=== PATIENT | male | born 1985 | race Caucasian/White ===

== ENCOUNTER 2017-01-22 14:00 | Emergency (ER) | payer MEDICAID ==
[~2017-01-22] VITALS: Ht 165.1 cm; Wt 69.0 kg
[~2017-01-22 14:00] MED LIST: HYDR-906 PO; ONDA4TAB8 PO; TAMS-14 PO
[2017-01-22 14:26] VITALS: Ht 165.1 cm; Wt 69.0 kg
[2017-01-22] MEDS ORDERED: ONDANSETRON 4 MG INJ IV STA (15:05)
[2017-01-22 15:21] LABS: URINE BLOOD (Dip) POC Negative (NEGATIVE)
[2017-01-22 15:28] LABS: ADD SCAN DIFF NO
[2017-01-22 15:30] LABS: BASOPHIL # 0.1 10^3/ul (0.0-0.1); BASOPHILS % 0.3 % (0.0-2.0); EOSINOPHILS # 0.1 10^3/ul (0.0-0.5); EOSINOPHILS % 0.3 % (0.0-7.0); HEMATOCRIT 59.1 % (42.0-52.0); HEMOGLOBIN 20.2 g/dl (14.0-18.0); LYMPHOCYTES # 1.4 10^3/ul (0.8-2.9); LYMPHOCYTES % 7.5 % (15.0-51.0); MEAN CORPUSCULAR HEMOGLOBIN 30.2 pg (29.0-33.0); MEAN CORPUSCULAR HGB CONC 34.2 g/dl (32.0-37.0); MEAN CORPUSCULAR VOLUME 88.3 fl (82.0-101.0); MEAN PLATELET VOLUME 9.4 fl (7.4-10.4); MONOCYTE # 1.4 10^3/ul (0.3-0.9); MONOCYTES % 7.2 % (0.0-11.0); NEUTROPHIL # 16.2 10^3/ul (1.6-7.5); NEUTROPHILS % 84.3 % (39.0-77.0); PLATELET COUNT 378 10^3/UL (140-415); RED BLOOD COUNT 6.69 10^6/ul (4.70-6.10); RED CELL DISTRIBUTION WIDTH 12.5 % (11.5-14.5); WHITE BLOOD COUNT 19.2 10^3/ul (4.8-10.8)
[2017-01-22] MEDS ORDERED: SOD CHLORIDE 0.9% 1,000 ML IV ONE (15:30)
[2017-01-22] MEDS ORDERED: MECLIZINE 12.5 MG TAB PO ONE (15:30)
[2017-01-22 15:49] LABS: ALBUMIN 5.4 g/dl (3.3-4.9); ALBUMIN/GLOBULIN RATIO 1.28; BILIRUBIN,INDIRECT 0.4 mg/dl (0-1.1); BILIRUBIN,TOTAL 0.4 mg/dl (0.2-1.3); CALCIUM 11.3 mg/dl (8.4-10.2); CREATININE 0.99 mg/dl (0.61-1.24); POTASSIUM 4.8 mmol/L (3.5-5.1); TOTAL PROTEIN 9.6 g/dl (6.1-8.1)
[2017-01-22 15:59] LABS: BARBITURATES Negative (NEGATIVE); BENZODIAZEPINES Negative (NEGATIVE); CANNABINOIDS Negative (NEGATIVE); COCAINE Negative (NEGATIVE); OPIATES Negative (NEGATIVE)
--- NOTE | 2017-01-22 16:33 | RADRPT ---
PROCEDURE: Right upper quadrant abdominal ultrasound. CLINICAL INDICATION: Abdominal pain TECHNIQUE: Licea scale and color doppler ultrasound images of the right upper quadrant. COMPARISON: None FINDINGS: Pancreas: Not adequately visualized due to overlying bowel gas. Liver: Morphology: Normal in size and contour. Echogenicity: Normal. Focal lesions: None. Main portal vein: Patent with hepatopetal flow. Biliary System: Normal appearing gallbladder wall. No gallstones seen. No intrahepatic biliary dilatation. Common bile duct measures 1.2 mm in maximal dimension. Kidneys: Right 9.7 cm in length. Right renal cortical thickness is preserved. Upper limits of normal echogenicity. No hydronephrosis. No renal calculi. No focal lesions. No free fluid identified. IMPRESSION: Normal gallbladder without gallstones. Pancreas not adequately visualized. RPTAT: AADD .Ronen Ramírez MD, Date Time Electronically viewed and signed by .Ronen Ramírez MD, on 01/22/2017 16:33 .B/
--- NOTE | 2017-01-22 16:37 | ERD ---
ER Documentation Chief Complaint Date/Time DATE: 01/22/17 TIME: 16:35 Chief Complaint ap with n/v x 1 day HPI This is a 31-year-old male who presents to the emergency department today with sudden onset vomiting and dizziness that started 3 hours ago. States he was driving on it happened. States he also has some abdominal pain. Denies any blurred vision, fevers or chills. Denies any loss of consciousness. ROS All systems reviewed and are negative except as per history of present illness. Medications Home Meds Active Scripts Electrolyte,Oral (Pedialyte) 1,000 Ml Solution, 100 ML PO Q6 Y for VOMITTING, # 1000 ML Prov:YUN ARVIZUC 01/22/17 Meclizine Hcl* (Antivert*) 12.5 Mg Tab, 12.5 MG PO Q6H Y for DIZZINESS, #20 TAB Prov:YUN ARVIZUC 01/22/17 Ondansetron Hcl* (Zofran*) 4 Mg Tablet, 4 MG PO Q6H for NAUSEA AND/OR VOMITING, #30 TAB Prov:YUN ARVIZUC 01/22/17 Hydrocodone/Acetaminophen ([place] 5-325 Tablet) 1 Each Tablet, 1 TAB PO Q6H Y for PAIN, #5 TAB Prov:TASHATADORCAS BRAUN PA-C 06/06/16 Tamsulosin Hcl* (Flomax*) 0.4 Mg Cap.er.24h, 0.4 MG PO BID, #30 CAP Prov:TASHATADORCAS BRAUN PA-C 06/06/16 Ondansetron Hcl* (Zofran*) 4 Mg Tablet, 4 MG PO Q6H for NAUSEA AND/OR VOMITING, #30 TAB Prov:TASHATARIDORCAS ISABEL-C 06/06/16 Allergies Allergies: Coded Allergies: No Known Allergy (Unverified , 01/22/17) PMhx/Soc Medical and Surgical Hx: pt denies Surgical Hx Anesthesia Reaction: No Hx Neurological Disorder: No Hx Respiratory Disorders: No Hx Cardiac Disorders: No Hx Psychiatric Problems: No Hx Miscellaneous Medical Probl: Yes (GASTRITIS ) Hx Alcohol Use: Yes Hx Substance Use: No Hx Tobacco Use: No Smoking Status: Never smoker Physical Exam Vitals Vital Signs Date Time Temp Pulse Resp B/P Pulse Ox O2 Delivery O2 Flow Rate FiO2 01/22/17 14:26 97.9 110 18 123/84 97 Physical Exam Const: NAD Head: Atraumatic Eyes: Normal Conjunctiva. PERRLA. EOM intact ENT: Ears TMs normal. Nose no drainage. Throat no erythema no exudate Neck: Full range of motion..~ No meningismus. Resp: Clear to auscultation bilaterally Cardio: Regular rate and rhythm, no murmurs Abd: Soft, epigastric tenderness, non distended. Normal bowel sounds. No right lower quadrant pain. No left lower quadrant pain. Skin: No petechiae or rashes Back: No midline or flank tenderness Ext: No cyanosis, or edema Neur: Awake and alert. No focal neurologic deficits. No gait ataxia. Psych: Normal Mood and Affect Result Diagram: 01/22/17 1520 01/22/17 1520 Results 24 hrs Laboratory Tests Test 01/22/17 15:00 01/22/17 15:20 01/22/17 15:25 Urine Opiates Screen Negative Urine Barbiturates Negative Urine Amphetamines Screen Negative Urine Benzodiazepines Screen Negative Urine Cocaine Screen Negative Urine Cannabinoids Negative White Blood Count 19.210^3/ul Red Blood Count 6.6910^6/ul Hemoglobin 20.2g/dl Hematocrit 59.1% Mean Corpuscular Volume 88.3fl Mean Corpuscular Hemoglobin 30.2pg Mean Corpuscular Hemoglobin Concent 34.2g/dl Red Cell Distribution Width 12.5% Platelet Count 36445^3/UL Mean Platelet Volume 9.4fl Neutrophils % 84.3% Lymphocytes % 7.5% Monocytes % 7.2% Eosinophils % 0.3% Basophils % 0.3% Nucleated Red Blood Cells % 0.0/100WBC Neutrophils # 16.210^3/ul Lymphocytes # 1.410^3/ul Monocytes # 1.410^3/ul Eosinophils # 0.110^3/ul Basophils # 0.110^3/ul Nucleated Red Blood Cells # 0.010^3/ul Sodium Level 148mmol/L Potassium Level 4.8mmol/L Chloride Level 105mmol/L Carbon Dioxide Level 28mmol/L Anion Gap 20 Blood Urea Nitrogen 19mg/dl Creatinine 0.99mg/dl Glucose Level 132mg/dl Calcium Level 11.3mg/dl Total Bilirubin 0.4mg/dl Direct Bilirubin 0.00mg/dl Indirect Bilirubin 0.4mg/dl Aspartate Amino Transf (AST/SGOT) 34IU/L Alanine Aminotransferase (ALT/SGPT) 50IU/L Alkaline Phosphatase 103IU/L Total Protein 9.6g/dl Albumin 5.4g/dl Globulin 4.20g/dl Albumin/Globulin Ratio 1.28 Lipase 50U/L Ethyl Alcohol Level < 10.0mg/dl Bedside Urine pH (LAB) 5.5 Bedside Urine Protein (LAB) 1+ Bedside Urine Glucose (UA) Negative Bedside Urine Ketones (LAB) Negative Bedside Urine Blood Negative Bedside Urine Nitrite (LAB) Negative Bedside Urine Leukocyte Esterase (L Negative Current Medications Medications (Trade) Dose Ordered Sig/Gianluca Route PRN Reason Start Time Stop Time Status Last Admin Dose Admin Ondansetron HCl 4 mg 4 mg ONCE STAT IV 01/22/17 15:05 01/22/17 15:08 DC 01/22/17 15:26 Sodium Chloride (NS) 1,000 ml @ 1,000 mls/hr Q1H ONCE IV 01/22/17 15:30 01/22/17 16:29 DC 01/22/17 15:26 Meclizine HCl (Antivert) 25 mg ONCE ONCE PO 01/22/17 15:30 01/22/17 15:31 DC 01/22/17 15:26 DIAGNOSTIC IMAGING REPORT Patient: DEMETRICE DUKE : 1985 Age: 31 Sex: M MR #: [id number] DOS: 01/22/17 0000 Ordering MD: YUN ARVIZU PA-C Location: [facility] Room/Bed: PROCEDURE: Right upper quadrant abdominal ultrasound. CLINICAL INDICATION: Abdominal pain TECHNIQUE: Licea scale and color doppler ultrasound images of the right upper quadrant. COMPARISON: None FINDINGS: Pancreas: Not adequately visualized due to overlying bowel gas. Liver: Morphology: Normal in size and contour. Echogenicity: Normal. Focal lesions: None. Main portal vein: Patent with hepatopetal flow. Biliary System: Normal appearing gallbladder wall. No gallstones seen. No intrahepatic biliary dilatation. Common bile duct measures 1.2 mm in maximal dimension. Kidneys: Right 9.7 cm in length. Right renal cortical thickness is preserved. Upper limits of normal echogenicity. No hydronephrosis. No renal calculi. No focal lesions. No free fluid identified. IMPRESSION: Normal gallbladder without gallstones. Pancreas not adequately visualized. RPTAT: AADD .Ronen Ramírez MD, MD Date Time Electronically viewed and signed by .Ronen Ramírez MD, MD on 01/22/2017 16:33 .B/ CC: YUN ARVIZU PA-C DIAGNOSTIC IMAGING REPORT Patient: DEMETRICE DUKE : 1985 Age: 31 Sex: M MR #: [id number] DOS: 01/22/17 0000 Ordering MD: YUN ARVIZU PA-C Location: [facility] Room/Bed: PROCEDURE: CT Brain without contrast. CLINICAL INDICATION: Dizziness and vomiting. TECHNIQUE: A CT of the brain without contrast was performed utilizing axial sections from the skull base through the vertex. The patient was scanned without intravenous contrast enhancement. Sagittal and coronal reformatted images were obtained using the data from the axial images. Total exam DLP is 824.76 mGy-cm. CTDIvol is 43.17 mGy. One or more of the following dose reduction techniques were used: Automated exposure control, adjustment of the mA and/or kV according to patient size, use of iterative reconstruction technique. COMPARISON: None available FINDINGS: There is normal licea-white matter differentiation. The ventricles and cisterns are normal. There is no intracranial hemorrhage or space-occupying lesion. There is no skull fracture or lytic lesion. IMPRESSION: 1. Normal noncontrast CT scan of the brain. 2. No intracranial hemorrhage. RPTAT: QQ .Marek Kumari MD, Date Time Electronically viewed and signed by .Marek Kumari MD, on 01/22/2017 19:15 .R/ CC: YUN ARVIZU PA-C Procedures/MDM This a 31-year-old male who presents to the emergency department today complaining of sudden onset dizziness and nausea with vomiting and abdominal pain that started approximately 3 hours prior to arrival. Patient did appear to be slow to answer questions however this may be secondary to possible language barrier. I did obtain laboratory work as well as a UA and urine drug screen and EKG. Laboratory work shows an elevated white blood cell count of 19.2. His hemoglobin and hematocrit are elevated. Platelets are within normal limits. Sodium is elevated otherwise electrolytes are within normal limits. Glucose is within normal limits. Liver function is within normal limits. Lipase within normal limits. UA is negative for infection Urine drug screen is negative Ethyl alcohol level is negative EKG read and interpreted by Dr. Mcconnell. No ST elevation. No QT prolongation. Normal sinus rhythm. Low suspicion for acute NC, PE, pericarditis Patient continued to complain of dizziness and therefore he was further evaluated by Dr. Mcconnell who recommended a right upper quadrant ultrasound and head CT scan Right upper quadrant ultrasound shows a normal gallbladder without gallstones. Pancreas is not adequately visualized. There is no free fluid. There is no renal calculi. There is no intrahepatic biliary dilatation. Head CT scan shows normal noncontrast CT scan of the brain. There is no intracranial hemorrhage. There is no fracture or lytic lesion. Patient symptoms at this time is consistent with dizziness and abdominal pain of uncertain etiology although may be related to viral-like illness. Low suspicion for hypoglycemia, cardiac cause or neurogenic cause of dizziness. Low suspicion for acute surgical abdomen. Patient will be given IV fluids, Zofran, meclizine here in the emergency department. He will be given a prescription for Zofran and meclizine for home. At this time the patient is stable for discharge and outpatient management. Patient should follow up with their PCP in the next 1-2 days. They may return to the emergency department sooner for any persistent or worsening of symptoms. Patient understood and agreed with the plan. Departure Diagnosis: Primary Impression: Dizziness Additional Impression: Abdominal pain Abdominal location: epigastric Qualified Code: R10.13 - Epigastric pain Condition: Fair YUN ARVIZU PA-C Jan 22, 2017 16:36
--- NOTE | 2017-01-22 19:15 | RADRPT ---
PROCEDURE: CT Brain without contrast. CLINICAL INDICATION: Dizziness and vomiting. TECHNIQUE: A CT of the brain without contrast was performed utilizing axial sections from the skul l base through the vertex. The patient was scanned without intravenous contrast enhancement. Sagitta l and coronal reformatted images were obtained using the data from the axial images. Total exam DLP is 824.76 mGy-cm. CTDIvol is 43.17 mGy. One or more of the following dose reduction techniques we re used: Automated exposure control, adjustment of the mA and/or kV according to patient size, use o f iterative reconstruction technique. COMPARISON: None available FINDINGS: There is normal mata-white matter differentiation. The ventricles and cisterns are normal. There is no intracranial hemorrhage or space-occupying lesion. There is no skull fracture or lytic lesion. IMPRESSION: 1. Normal noncontrast CT scan of the brain. 2. No intracranial hemorrhage. RPTAT: QQ .Marek Kumari MD, MD Date Time Electronically viewed and signed by .Marek Kumari MD, on 01/22/2017 19:15 .R/
[2017-01-22] MEDS ORDERED: ONDA4TAB8 PO (19:23)
[2017-01-22] MEDS ORDERED: ELEC100080 PO (19:24)
[2017-01-22] MEDS ORDERED: MECL12.574 PO (19:24)
== END 2017-01-22 19:36 | disposition home or self-care (01) ==
LOC: FTE 14:00
DX: R42 Dizziness and giddiness (principal); R10.13 Epigastric pain
CPT/HCPCS: 36415; 70450; 76705; 80053; 80306; 80307; 81003; 83690; 85025; 93005; 96374; J2405; J7030; Z7502; Z7610

== ENCOUNTER 2018-12-06 14:32 | Inpatient (IN) | payer MEDICAID ==
[2018-12-06] VITALS (20 sets, daily range): BP systolic 114–158; BP diastolic 75–91; PULSE 70–84; RESP 14–23; Ht 167.6 cm; Wt 79.7 kg
[~2018-12-06] VITALS: Ht 167.6 cm; Wt 79.7 kg
[~2018-12-06 14:32] MED LIST changes: +ELEC100080 PO; +HYDR-4011 PO; -HYDR-906 PO; +MECL12.574 PO
[2018-12-06] MEDS ORDERED: morphine 4 MG/ML VIAL IV STA (15:13)
[2018-12-06] MEDS ORDERED: SOD CHLORIDE 0.9% 500 ML IV STA (15:13)
[2018-12-06] MEDS ORDERED: ONDANSETRON 4 MG INJ IV STA (15:13)
--- NOTE | 2018-12-06 16:25 | ERD ---
ER Documentation Chief Complaint Chief Complaint ap today HPI 33-year-old male patient with no significant past medical history presents to the ED complaining of diffuse abdominal pain that started 5 AM this morning. Reports that he has had a 10 episodes of nonbilious nonbloody vomiting. States that he has had decreased appetite. Describes his pain as a sharp sensation and rates it a 10 out of 10. Denies any chest pain, shortness of breath, diarrhea, constipation, dysuria, urgency, frequency. ROS All systems reviewed and are negative except as per history of present illness. Medications Home Meds Active Scripts Electrolyte,Oral (Pedialyte) 1,000 Ml Solution, 100 ML PO Q6 PRN for VOMITTING, #1000 ML Prov:YUN ARVIZU PA-C 01/22/17 Meclizine Hcl* (Antivert*) 12.5 Mg Tab, 12.5 MG PO Q6H PRN for DIZZINESS, #20 TAB Prov:YUN ARVIZUC 01/22/17 Ondansetron Hcl* (Zofran*) 4 Mg Tablet, 4 MG PO Q6H for NAUSEA AND/OR VOMITING, #30 TAB Prov:YUN ARVIZUC 01/22/17 Hydrocodone/Acetaminophen ([place] 5-325 Tablet) 1 Each Tablet, 1 TAB PO Q6H PRN for PAIN, #5 TAB Prov:TASHATADORCAS BRAUN PA-C 06/06/16 Tamsulosin Hcl* (Flomax*) 0.4 Mg Cap.er.24h, 0.4 MG PO BID, #30 CAP Prov:TASHATADORCAS BRAUNC 06/06/16 Ondansetron Hcl* (Zofran*) 4 Mg Tablet, 4 MG PO Q6H for NAUSEA AND/OR VOMITING, #30 TAB Prov:TASHATADORCAS BRAUN-C 06/06/16 Allergies Allergies: Coded Allergies: No Known Allergy (Unverified , 01/22/17) PMhx/Soc Anesthesia Reaction: No Hx Neurological Disorder: No Hx Respiratory Disorders: No Hx Cardiac Disorders: No Hx Psychiatric Problems: No Hx Miscellaneous Medical Probl: Yes (GASTRITIS ) Hx Alcohol Use: Yes Hx Substance Use: No Hx Tobacco Use: No FmHx Family History: No diabetes, No coronary disease Physical Exam Vitals Vital Signs Date Temp Pulse Resp B/P (MAP) Pulse Ox O2 O2 Flow FiO2 Time Delivery Rate 12/06/18 97.5 63 20 139/69 96 Room Air 18:19 (92) 12/06/18 98.1 67 18 153/71 99 14:35 (98) Physical Exam Const: [id number], well-nourished. In no acute distress. Head: Atraumatic, normocephalic Eyes: Normal Conjunctiva without injection. No purulent discharge. ENT: Normal external ear, nose. Moist oropharynx without tonsillar exudates. Non-erythematous pharynx. Uvula midline. No drooling. No trismus. Neck: No cervical midline tenderness. Full range of motion. No meningismus. No cervical lymphadenopathy. No JVD. Resp: Clear to auscultation bilaterally. No wheezing, rhonchi, rales, or crackles. No accessory muscle use. No retractions. Cardio: Regular rate and rhythm. No murmurs, rubs or gallops. Abd: Soft, diffuse abdomen, non distended. Normal bowel sounds. No palpable masses. No rebound tenderness. No guarding. Negative McBurney's point. Negative psoas sign. Negative obturator sign. Skin: No petechiae or rashes Back: No midline tenderness. No CVA tenderness. Ext: No cyanosis, or edema. Neur: Awake and alert. Normal gait. Normal coordination. Psych: Normal Mood and Affect Result Diagram: 12/07/18 0453 12/07/18 0452 Results 24 hrs Laboratory Tests Test 12/06/18 15:29 12/06/18 16:43 White Blood Count 22.5 10^3/ul Red Blood Count 5.83 10^6/ul Hemoglobin 17.2 g/dl Hematocrit 50.6 % Mean Corpuscular Volume 86.8 fl Mean Corpuscular Hemoglobin 29.5 pg Mean Corpuscular Hemoglobin Concent 34.0 g/dl Red Cell Distribution Width 12.3 % Platelet Count 330 10^3/UL Mean Platelet Volume 9.2 fl Immature Granulocytes % 0.500 % Neutrophils % 89.7 % Lymphocytes % 5.2 % Monocytes % 4.4 % Eosinophils % 0.0 % Basophils % 0.2 % Nucleated Red Blood Cells % 0.0 /100WBC Immature Granulocytes # 0.110 10^3/ul Neutrophils # 20.2 10^3/ul Lymphocytes # 1.2 10^3/ul Monocytes # 1.0 10^3/ul Eosinophils # 0.0 10^3/ul Basophils # 0.1 10^3/ul Nucleated Red Blood Cells # 0.0 10^3/ul Pathologist Review (Hematology) YES Urine Color YELLOW Urine Clarity SLIGHTLY CLOUDY Urine pH 6.0 Urine Specific [place] 1.034 Urine Ketones 1+ mg/dL Urine Nitrite NEGATIVE mg/dL Urine Bilirubin NEGATIVE mg/dL Urine Urobilinogen NEGATIVE mg/dL Urine Leukocyte Esterase NEGATIVE Rebecca/ul Urine Microscopic RBC 3 /HPF Urine Microscopic WBC 1 /HPF Urine Mucus MANY /HPF Urine Hemoglobin NEGATIVE mg/dL Urine Glucose NEGATIVE mg/dL Urine Total Protein 1+ mg/dl Sodium Level 140 mmol/L Potassium Level 3.9 mmol/L Chloride Level 100 mmol/L Carbon Dioxide Level 28 mmol/L Anion Gap 12 Blood Urea Nitrogen 9 mg/dl Creatinine 0.73 mg/dl Est Glomerular Filtrat Rate mL/min > 60 mL/min Glucose Level 118 mg/dl Calcium Level 9.9 mg/dl Total Bilirubin 1.2 mg/dl Direct Bilirubin 0.00 mg/dl Indirect Bilirubin 1.2 mg/dl Aspartate Amino Transf (AST/SGOT) 23 IU/L Alanine Aminotransferase (ALT/SGPT) 31 IU/L Alkaline Phosphatase 75 IU/L Total Protein 7.8 g/dl Albumin 4.6 g/dl Globulin 3.20 g/dl Albumin/Globulin Ratio 1.43 Lipase 26 U/L Prothrombin Time 13.6 Sec Prothrombin Time Ratio 1.1 INR International Normalized Ratio 1.03 Activated Partial Thromboplast Time 25.5 Sec Current Medications Medications Dose Sig/Gianluca Start Time Status Last (Trade) Ordered Route PRN Stop Time Admin Dose Reason Admin Sodium 500 ml @ Q1H STAT 12/06/18 DC 12/06/18 Chloride 500 mls/hr IV 15:13 12/06/18 15:40 16:12 Morphine 4 mg ONCE STAT 12/06/18 DC 12/06/18 Sulfate IV 15:13 12/06/18 15:35 (morphine) 15:15 Ondansetron 4 mg ONCE STAT 12/06/18 DC 12/06/18 HCl (Zofran IV 15:13 12/06/18 15:35 Inj) 15:15 Piperacillin 100 ml @ ONCE ONCE 12/06/18 DC 12/06/18 Sod/ 200 mls/hr IVPB 16:30 12/06/18 16:36 Tazobactam 16:59 Sod Sodium 1,000 ml @ Q1H ONCE 12/06/18 DC 12/06/18 Chloride 1,000 mls/hr IV 16:30 12/06/18 16:36 17:29 Potassium 1,000 ml @ Q10H IV 12/06/18 DC Chloride/S[place] 100 mls/hr 18:27 12/06/18 um Chloride 19:34 Procedures/MDM 33-year-old patient with no significant past medical history presents to ED complaining of diffuse abdominal pain that started this morning at 5 AM associated with some vomiting. Patient is afebrile and nontoxic-appearing. Patient does appear in mild distress, therefore patient was treated in the ED with 4 mg IV morphine, 4 mg IV Zofran, will saline. Patient was further worked up with CBC, CMP, lipase, UA, T of the abdomen and pelvis without contrast. CBC: No leukocytosis. No e/o of systemic infection. No e/o anemia. CMP: No e/o severe acidosis, alkalosis, renal failure, diabetic ketoacidosis, liver disease Lipase within normal limits. Urine: No leukocyte esterase, no nitrites, no hematuria. IMPRESSION: 1. FINDINGS DESCRIBED ABOVE ARE CONSISTENT WITH ACUTE APPENDICITIS. THERE IS ADJACENT FATTY STRANDING AND SEVERAL APPENDICOLITHS. NO EVIDENCE OF PERFORATION OR FOCAL FLUID COLLECTIONS. 2. No evidence of bowel obstruction. 3. Small left-sided renal cyst. No evidence of obstructive uropathy. Patient has CT findings of acute appendicitis. Leukocytosis of 22.5. Started on Zosyn 3.375 IV. PT PTT, type and screen was ordered. This discussed with my supervising physician, Dr. Duke who will admit the patient for surgical consultation. Patient agreed with the management and admission plan Sebastian: I saw patinet and agree with plan. Admitted to Dr. Garcia with Dr. Das as surgical consult Departure Diagnosis: Primary Impression: Appendicitis Appendicitis type: unspecified Qualified Codes: K37 - Unspecified appendicitis Condition: Serious SHIVANISKYLAR Kena NARAYAN December 06, 2018 16:25 JOSE DUKE MD December 07, 2018 09:51
[2018-12-06] MEDS ORDERED: PIPER-TAZO 3.375 GM IV (PMX) 100 ML IVPB ONE (16:30)
[2018-12-06] MEDS ORDERED: SOD CHLORIDE 0.9% 1,000 ML IV ONE (16:30)
--- NOTE | 2018-12-06 16:47 | CONS ---
Assessment/Plan Assessment/Plan Assessment/Plan (Daily) Acute appendicitis I discussed laparoscopic, possible open, appendectomy at the patient. All bene fits, risks, alternatives discussed in detail. All questions answered. The patient elects to proceed Consultation Date/Type/Reason Admit Date/Time Date/Time of Note DATE: 12/06/18 TIME: 16:44 Hx of Present Illness The patient is a 33-year-old male who woke up this morning acute onset of epigastric and umbilical pain. Interval episodes of emesis. No fevers or chills. Decreased appetite. His symptoms persisted throughout the day and he presented to the ER this morning. He does not that it is localized to his right lower quadrant. His work-up in the ER was consistent with acute appendicitis I was called for consultation. Past Medical History Home Meds Active Scripts Electrolyte,Oral (Pedialyte) 1,000 Ml Solution, 100 ML PO Q6 PRN for VOMITTING, #1000 ML Prov:YUN ARVIZU PA-C 01/22/17 Meclizine Hcl* (Antivert*) 12.5 Mg Tab, 12.5 MG PO Q6H PRN for DIZZINESS, #20 TAB Prov:YUN ARVIZU PA-C 01/22/17 Ondansetron Hcl* (Zofran*) 4 Mg Tablet, 4 MG PO Q6H for NAUSEA AND/OR VOMITING, #30 TAB Prov:YUN ARVIZUC 01/22/17 Hydrocodone/Acetaminophen ([place] 5-325 Tablet) 1 Each Tablet, 1 TAB PO Q6H PRN for PAIN, #5 TAB Prov:DORCAS WALL PA-C 06/06/16 Tamsulosin Hcl* (Flomax*) 0.4 Mg Cap.er.24h, 0.4 MG PO BID, #30 CAP Prov:DORCAS WALL PA-C 06/06/16 Ondansetron Hcl* (Zofran*) 4 Mg Tablet, 4 MG PO Q6H for NAUSEA AND/OR VOMITING, #30 TAB Prov:DORCAS WALL PA-C 06/06/16 Medications Current Medications Piperacillin Sod/ Tazobactam Sod 100 ml @ 200 mls/hr ONCE ONCE IVPB Last administered on 12/06/18at 16:36; Admin Dose 200 MLS/HR; Start 12/06/18 at 16:30; Stop 12/06/18 at 16:59 Sodium Chloride 1,000 ml @ 1,000 mls/hr Q1H ONCE IV Last administered on 12/06/18at 16:36; Admin Dose 1,000 MLS/HR; Start 12/06/18 at 16:30; Stop 12/06/18 at 17:29 Allergies: Coded Allergies: No Known Allergy (Unverified , 01/22/17) Past Surgical History Past Surgical Hx: no surgical history Family History Significant Family History: no pertinent family hx Social History Alcohol Use: rarely Smoking Status: Never smoker Drug Use: none Exam/Review of Systems Exam Vitals Vital Signs Date Temp Pulse Resp B/P (MAP) Pulse Ox O2 O2 Flow FiO2 Time Delivery Rate 12/06/18 98.1 67 18 153/71 99 14:35 (98) Constitutional: alert, oriented, well developed Psych: no complaints Head: normocephalic Eyes: nl conjunctiva Neck: supple Respiratory: clear to auscultation Cardiovascular: regular rate and rhythm Gastrointestinal: soft, other (Distended but significant right lower quadrant tenderness) Results Result Diagram: 12/06/18 1529 12/06/18 1529 Results 24hrs Laboratory Tests Test 12/06/18 15:29 White Blood Count 22.5 H Red Blood Count 5.83 Hemoglobin 17.2 Hematocrit 50.6 Mean Corpuscular Volume 86.8 Mean Corpuscular Hemoglobin 29.5 Mean Corpuscular Hemoglobin Concent 34.0 Red Cell Distribution Width 12.3 Platelet Count 330 Mean Platelet Volume 9.2 Immature Granulocytes % 0.500 H Neutrophils % 89.7 H Lymphocytes % 5.2 L Monocytes % 4.4 Eosinophils % 0.0 Basophils % 0.2 Nucleated Red Blood Cells % 0.0 Immature Granulocytes # 0.110 H Neutrophils # 20.2 H Lymphocytes # 1.2 Monocytes # 1.0 H Eosinophils # 0.0 Basophils # 0.1 Nucleated Red Blood Cells # 0.0 Pathologist Review (Hematology) YES Urine Color YELLOW Urine Clarity SLIGHTLY CLOUDY A Urine pH 6.0 Urine Specific [place] 1.034 H Urine Ketones 1+ H Urine Nitrite NEGATIVE Urine Bilirubin NEGATIVE Urine Urobilinogen NEGATIVE Urine Leukocyte Esterase NEGATIVE Urine Microscopic RBC 3 Urine Microscopic WBC 1 Urine Mucus MANY A Urine Hemoglobin NEGATIVE Urine Glucose NEGATIVE Urine Total Protein 1+ H Sodium Level 140 Potassium Level 3.9 Chloride Level 100 Carbon Dioxide Level 28 Anion Gap 12 Blood Urea Nitrogen 9 Creatinine 0.73 Est Glomerular Filtrat Rate mL/min > 60 Glucose Level 118 Calcium Level 9.9 Total Bilirubin 1.2 Direct Bilirubin 0.00 Indirect Bilirubin 1.2 H Aspartate Amino Transf (AST/SGOT) 23 Alanine Aminotransferase (ALT/SGPT) 31 Alkaline Phosphatase 75 Total Protein 7.8 Albumin 4.6 Globulin 3.20 Albumin/Globulin Ratio 1.43 Lipase 26 Imaging Imaging Patient: DEMETRICE DUKE : 1985 Age: 33 Sex: M MR #: [id number] DOS: 12/06/18 1513 Ordering MD: SKYLAR PARRISH PA-C Location: [facility] Room/Bed: PROCEDURE: CT ABDOMEN AND PELVIS WITHOUT CONTRAST. CLINICAL INDICATION: Abdominal pain TECHNIQUE: CT scan of the abdomen and pelvis without contrast was performed on a multidetector high-resolution CT scanner. The patient was scanned without intravenous contrast. Coronal and sagittal reformatted images were obtained from the axial source images. Images were reviewed on a high-resolution PACS workstation. The total exam CTDI equals 7.9 mGy and the total exam DLP equals 502 mGy-cm. One or more of the following dose reduction techniques were used: Automated exposure control. Adjustment of the mA and/or kV according to patient size. Use of iterative reconstruction technique. DICOM images are available COMPARISON: None FINDINGS: CT abdomen: The lung bases are clear. The heart size is within normal limits. There is no significant pericardial effusion. Hepatic morphology is within normal limits. No gross contour deforming masses. The gallbladder is within normal limits. No evidence of intrahepatic or extrahepatic biliary dilatation. The spleen and pancreas are within normal limits. Both adrenal glands are within normal limits. Both kidneys are in anatomic position. No gross renal/ureteric calculi. No evidence of obstructive uropathy. 1.5 cm left-sided renal cyst. The visualized GI tract demonstrates normal caliber loops of small and large bowel. No evidence of bowel obstruction. Stool filled loops of large bowel suggestive of constipation. The appendix is dilated, containing several appendicoliths with adjacent fatty stranding. The unenhanced aorta is unremarkable. No significant retroperitoneal lymphadenopathy. CT pelvis: The bladder is within limits. Prostate is normal size. Rectosigmoid colon demonstrates stool. No significant free fluid. No pelvic lymphadenopathy. The visualized osseous structures appears to be within normal limits. IMPRESSION: 1. FINDINGS DESCRIBED ABOVE ARE CONSISTENT WITH ACUTE APPENDICITIS. THERE IS ADJACENT FATTY STRANDING AND SEVERAL APPENDICOLITHS. NO EVIDENCE OF PERFORATION OR FOCAL FLUID COLLECTIONS. 2. No evidence of bowel obstruction. 3. Small left-sided renal cyst. No evidence of obstructive uropathy. RPTAT: AAPP Physician Dianna Date Time Electronically viewed and signed by Driss Murray Physician on 12/06/2018 16:00 Medications Medication Current Medications Piperacillin Sod/ Tazobactam Sod 100 ml @ 200 mls/hr ONCE ONCE IVPB Last administered on 12/06/18at 16:36; Admin Dose 200 MLS/HR; Start 12/06/18 at 16:30; Stop 12/06/18 at 16:59 Sodium Chloride 1,000 ml @ 1,000 mls/hr Q1H ONCE IV Last administered on 12/06/18at 16:36; Admin Dose 1,000 MLS/HR; Start 12/06/18 at 16:30; Stop 12/06/18 at 17:29 KELLY APPIAH MD December 06, 2018 16:47
--- NOTE | 2018-12-06 16:51 | SIPON ---
Date/Time of Note Date/Time of Note DATE: 12/06/18 TIME: 16:50 Operative Report Preoperative Diagnosis Acute appendicitis Postoperative Diagnosis Same Operation/Procedure Performed Laparoscopic appendectomy Surgeon see signature line automotive parts counter assistant None Anesthesia: general Estimated blood loss: minimal Transfusion Required none Specimen Appendix Grafts/Implants none Complications none KELLY APPIAH MD December 06, 2018 16:51
--- NOTE | 2018-12-06 16:53 | OPR ---
Date/Time of Note Date/Time of Note DATE: 12/06/18 TIME: 16:51 Operative Report Preoperative Diagnosis Acute appendicitis Postoperative Diagnosis Same Operation/Procedure Performed Laparoscopic appendectomy Surgeon see signature line Chipper Operator None Anesthesia Type: general Anesthesiologist: Armando Sin M.D. Estimated Blood Loss: minimal Transfusion none Specimen Appendix Grafts/Implants none Complications none Pt Condition Post Procedure: stable Disposition: PACU Indications The patient is a 33-year-old male with acute appendicitis. I discussed laparoscopic, possible open, appendectomy with the patient . All benefits, risks, alternatives were discussed in detail. All questions answered. The patient elected to proceed per Procedure Description The patient was brought to operative room placed supine on the table. After preop antibiotics and SCDs were applied, the patient was intubated. The abdomen was cleaned, prepped, draped in usual sterile fashion. All incisions were infiltrated with half percent lidocaine with epinephrine. A 5 mm incision was made in the umbilicus. Using a 5 by laparoscope obtained trocar, the abdomen was was entered and insufflated to 15 mmHg CO2. The following trochars in place and direct vision: A right lower quadrant 5 mm left lower quadrant 12 mm I identified my appendix. It was consistent with acute appendicitis. The base was not involved. I made a rent through the mesentery at the base of the appendix. I then divided the base of the appendix to the cecum with a 35 mm Endo linear cutter white load. . I was able to elevate the appendix. The mesentery was then divided with a 35 mm Endo linear cutter white load. The appendix was placed in Endo Catch bag removed and the 12 mm trocar site. I irrigated out the right lower quadrant and pelvis until effluent was clear. I visualized the staple lines. They were hemostatic. I desufflated the abdomen and removed all trochars. The fascia of the 12 mm trocar site was closed with 0 Vicryl. Skin incisions were closed with 4-0 Monocryl, Mastisol, and Steri-Strips marked muscle Steri-Strips. The patient tolerated the procedure well, was extubated ER, and transferred to the recovery room in stable condition. KELLY APPIAH MD December 06, 2018 16:52
--- NOTE | 2018-12-06 18:26 | HP ---
Date/Time of Note Date/Time of Note DATE: 12/06/18 TIME: 18:24 Assessment/Plan VTE Prophylaxis SCD applied (from Nsg): Yes Pharmacological prophylaxis: NA/contraindicated Pharm contraindication: surgical contra Lines/Catheters IV Catheter Type (from Nrsg): Saline Lock Assessment/Plan Hospital Course 1. Abdominal pain and sepsis secondary to acute appendicitis Patient to be taken to the OR today Pain control Zosyn IV Prophylaxis: SCDs Result Diagram: 12/06/18 1529 12/06/18 1529 Results 24hrs Laboratory Tests Test 12/06/18 15:29 12/06/18 16:43 White Blood Count 22.5 H Red Blood Count 5.83 Hemoglobin 17.2 Hematocrit 50.6 Mean Corpuscular Volume 86.8 Mean Corpuscular Hemoglobin 29.5 Mean Corpuscular Hemoglobin Concent 34.0 Red Cell Distribution Width 12.3 Platelet Count 330 Mean Platelet Volume 9.2 Immature Granulocytes % 0.500 H Neutrophils % 89.7 H Lymphocytes % 5.2 L Monocytes % 4.4 Eosinophils % 0.0 Basophils % 0.2 Nucleated Red Blood Cells % 0.0 Immature Granulocytes # 0.110 H Neutrophils # 20.2 H Lymphocytes # 1.2 Monocytes # 1.0 H Eosinophils # 0.0 Basophils # 0.1 Nucleated Red Blood Cells # 0.0 Pathologist Review (Hematology) YES Urine Color YELLOW Urine Clarity SLIGHTLY CLOUDY A Urine pH 6.0 Urine Specific [place] 1.034 H Urine Ketones 1+ H Urine Nitrite NEGATIVE Urine Bilirubin NEGATIVE Urine Urobilinogen NEGATIVE Urine Leukocyte Esterase NEGATIVE Urine Microscopic RBC 3 Urine Microscopic WBC 1 Urine Mucus MANY A Urine Hemoglobin NEGATIVE Urine Glucose NEGATIVE Urine Total Protein 1+ H Sodium Level 140 Potassium Level 3.9 Chloride Level 100 Carbon Dioxide Level 28 Anion Gap 12 Blood Urea Nitrogen 9 Creatinine 0.73 Est Glomerular Filtrat Rate mL/min > 60 Glucose Level 118 Calcium Level 9.9 Total Bilirubin 1.2 Direct Bilirubin 0.00 Indirect Bilirubin 1.2 H Aspartate Amino Transf (AST/SGOT) 23 Alanine Aminotransferase (ALT/SGPT) 31 Alkaline Phosphatase 75 Total Protein 7.8 Albumin 4.6 Globulin 3.20 Albumin/Globulin Ratio 1.43 Lipase 26 Prothrombin Time 13.6 Prothrombin Time Ratio 1.1 INR International Normalized Ratio 1.03 Activated Partial Thromboplast Time 25.5 HPI/ROS Admit Date/Time Admit Date/Time December 06, 2018 Hx of Present Illness Patient is a 33-year-old male with no past medical history, patient presents with abdominal pain that began this morning. Pain was associated with nausea vomiting, in the ER CT abdomen showed acute appendicitis. Patient has no other complaints at this time. ROS Constitutional: no complaints, improved Eyes: no complaints ENT: no complaints Respiratory: no complaints Cardiovascular: no complaints Gastrointestinal: pain Genitourinary: no complaints Musculoskeletal: no complaints Skin: no complaints Neurologic: no complaints Endocrine: no complaints Lymphatic: no complaints Psychological: no complaints, nl mood/affect Immunologic: no complaints PMH/Family/Social Past Medical History Medical History: no pertinent history Coded Allergies: No Known Allergy (Unverified , 01/22/17) Past Surgical History Past Surgical Hx: no surgical history Family History Significant Family History: no pertinent family hx Social History Alcohol Use: rarely Smoking Status: Never smoker Drug Use: none Exam/Review of Systems Vital Signs Vitals Vital Signs Date Temp Pulse Resp B/P (MAP) Pulse Ox O2 O2 Flow FiO2 Time Delivery Rate 12/06/18 97.5 63 20 139/69 96 Room Air 18:19 (92) Exam Constitutional: alert, oriented Respiratory: clear to auscultation Cardiovascular: regular rate and rhythm Gastrointestinal: soft, tender; No distended Musculoskeletal: nl extremities to inspection JOSE ELIAS WASHINGTON December 06, 2018 18:26
[2018-12-06] MEDS ORDERED: NS + KCL 20 MEQ 1,000 ML IV SCH (18:27)
[2018-12-06] MEDS ORDERED: NACL 0.9% 3 ML SYG IV SCH (18:30)
[2018-12-06] MEDS ORDERED: morphine 2 MG INJ IV PRN ×2 (18:30→19:30)
[2018-12-06] MEDS ORDERED: DOCUSATE SODIUM 100 MG CAP PO PRN (18:30)
[2018-12-06] MEDS ORDERED: ACETAMINOPHEN 325 MG TAB PO PRN ×2 (18:30→19:30)
[2018-12-06] MEDS ORDERED: HYDROCODONE/APAP (5/325) TAB PO PRN ×2 (18:30→19:30)
[2018-12-06] MEDS ORDERED: ONDANSETRON 4 MG INJ IV PRN ×2 (18:30→19:30)
[2018-12-06] MEDS ORDERED: ZOLPIDEM 5 MG TAB PO PRN (18:30)
[2018-12-06] MEDS ORDERED: LIDOCAINE 1% (MPF) 30 ML INJ ONE (18:33)
[2018-12-06] MEDS ORDERED: BUPIVACAINE 0.25%/EPI (SDV) 30 ML INJ ONE (18:33)
--- NOTE | 2018-12-06 18:52 | PREAC ---
Date/Time of Note Date/Time of Note DATE: 12/06/18 TIME: 18:51 Anesthesia Eval and Record Evaluation Time Pre-Procedure Interview DATE: 12/06/18 TIME: 18:51 Age 33 Sex male NPO: 8 hrs Preoperative diagnosis acute appendicitis Planned procedure lap appe Past Medical History Past Medical History: None Surgery & Anesthesia Issues No known issue Meds Anticoagulation: No Beta Elo within 24 hr: No Reason Beta Elo not given: Pt. not on B-Elo Active Scripts Electrolyte,Oral (Pedialyte) 1,000 Ml Solution, 100 ML PO Q6 PRN for VOMITTING, #1000 ML Prov:YUN ARVIZU PA-C 01/22/17 Meclizine Hcl* (Antivert*) 12.5 Mg Tab, 12.5 MG PO Q6H PRN for DIZZINESS, #20 TAB Prov:YUN ARVIZU PA-C 01/22/17 Ondansetron Hcl* (Zofran*) 4 Mg Tablet, 4 MG PO Q6H for NAUSEA AND/OR VOMITING, #30 TAB Prov:YUN ARVIZU PA-C 01/22/17 Hydrocodone/Acetaminophen ([place] 5-325 Tablet) 1 Each Tablet, 1 TAB PO Q6H PRN for PAIN, #5 TAB Prov:DORCAS WALL PA-C 06/06/16 Tamsulosin Hcl* (Flomax*) 0.4 Mg Cap.er.24h, 0.4 MG PO BID, #30 CAP Prov:DORCAS WALL PA-C 06/06/16 Ondansetron Hcl* (Zofran*) 4 Mg Tablet, 4 MG PO Q6H for NAUSEA AND/OR VOMITING, #30 TAB Prov:DORCAS WALL PA-C 06/06/16 Current Medications Potassium Chloride/Sodium Chloride 1,000 ml @ 100 mls/hr Q10H IV ; Start 12/06/18 at 18:27 IV Flush (NS 3 ml) 3 ml PER PROTOCOL IV ; Start 12/06/18 at 18:30 Ondansetron HCl (Zofran Inj) 4 mg Q6H PRN IV NAUSEA/VOMITING; Start 12/06/18 at 18:30 Acetaminophen (Tylenol Tab) 650 mg Q6H PRN PO .PAIN 1-3 OR TEMP; Start 12/06/18 at 18:30 Acetaminophen/ Hydrocodone Bitart ([place] (5/325)) 1 tab Q6H PRN PO .MOD PAIN 4- 6; Start 12/06/18 at 18:30 Morphine Sulfate (morphine) 2 mg Q4H PRN IV .SEVERE PAIN 7-10; Start 12/06/18 at 18:30 Docusate Sodium (Colace) 100 mg Q12H PRN PO .CONSTIPATION; Start 12/06/18 at 18:30 Zolpidem Tartrate (Ambien) 5 mg QHS PRN PO .INSOMNIA; Start 12/06/18 at 18:30 Piperacillin Sod/ Tazobactam Sod 100 ml @ 200 mls/hr Q6 IVPB ; Start 12/07/18 at 00:00 Meds reviewed: Yes Allergies Coded Allergies: No Known Allergy (Unverified , 01/22/17) Allergies Reviewed: Yes Labs/Studies Labs Reviewed: Reviewed by anesthesiologist Result Diagram: 12/06/18 1529 12/06/18 1529 Laboratory Tests 12/06/18 15:29 Blood Bank Test 12/06/18 16:43 Antibody Screen NEGATIVE Blood Type A POSITIVE test: N/A Pre-procedure Exam Last vitals Vital Signs Date Temp Pulse Resp B/P (MAP) Pulse Ox O2 O2 Flow FiO2 Time Delivery Rate 12/06/18 97.5 63 20 139/69 96 Room Air 18:19 (92) Airway: Adequate mouth opening, Adequate thyromental dist Mallampati: Mallampati II Teeth: Normal Lung: Normal Heart: Normal ASA Physical Status ASA physical status: 1 Emergency: None Planned Anesthetic General/MAC: ETT Planned Pain Management Parenteral pain med Pre-operative Attestations Prior to commencing anesthesia and surgery, the patient was re-evaluated, there was verification of: *The patient's identity *The results of appropriate recent lab work and preoperative vital signs *The above evaluation not changing prior to induction *Anesthetic plan, risk benefits, alternative and complications discussed with patient/family; questions answered; patient/family understands, accepts and wishes to proceed. Armando Sin M.D. December 06, 2018 18:52
[2018-12-06] MEDS ORDERED: FENTAnyl 50 MCG/ML VIAL ONE (18:54)
[2018-12-06] MEDS ORDERED: GLYCOPYRROLATE 0.4 MG INJ ONE (18:54)
[2018-12-06] MEDS ORDERED: DEXAMETHASONE 4 MG/ML 5 ML INJ ONE (18:54)
[2018-12-06] MEDS ORDERED: PROPOFOL 20 ML ONE (18:54)
[2018-12-06] MEDS ORDERED: ROCURONIUM 50 MG INJ ONE (18:54)
[2018-12-06] MEDS ORDERED: CEFAZOLIN 1 GM INJ ONE (18:54)
[2018-12-06] MEDS ORDERED: MIDAZOLAM 1 MG/ML 2 ML INJ ONE (18:54)
[2018-12-06] MEDS ORDERED: NEOSTIGMINE 3 MG/3 ML SYRINGE ONE (18:54)
[2018-12-06] MEDS ORDERED: ONDANSETRON 4 MG INJ ONE (18:54)
[2018-12-06] MEDS ORDERED: KETOROLAC 60 MG INJ IM STA (19:12)
[2018-12-06] MEDS ORDERED: HYDROCODONE/APAP (5/325) TAB PO ONE (19:30)
--- NOTE | 2018-12-06 19:35 | PAC ---
Date/Time of Note Date/Time of Note DATE: 12/06/18 TIME: 19:35 Post-Anesthesia Notes Post-Anesthesia Note Last documented vital signs Vital Signs Date Temp Pulse Resp B/P (MAP) Pulse Ox O2 O2 Flow FiO2 Time Delivery Rate 12/06/18 97.5 63 20 139/69 96 Room Air 18:19 (92) Activity: WNL Respiratory function: WNL Cardiovascular function: WNL Mental status: Baseline Pain reasonably controlled: Yes Hydration appropriate: Yes Nausea/Vomiting absent: Yes Armando Sin M.D. December 06, 2018 19:35
[2018-12-06] MEDS ORDERED: KETOROLAC 30 MG INJ IM STA (20:40)
[2018-12-06] MEDS: D5-NS + KCL 20 MEQ 1,000 ML IV SCH (22:07)
[2018-12-07] MEDS ORDERED: PIPER-TAZO 3.375 GM IV (PMX) 100 ML IVPB SCH
[2018-12-07] MEDS: PIPER-TAZO 3.375 GM IV (PMX) 100 ML IVPB SCH ×3 (00:02→11:09)
[2018-12-07] MEDS ORDERED: ENOXAPARIN 40 MG/0.4 ML SYG SC SCH (07:00)
[2018-12-07 07:28] VITALS: BP 130/65; PULSE 80; RESP 18
[2018-12-07] MEDS: D5-NS + KCL 20 MEQ 1,000 ML IV SCH (09:42)
--- NOTE | 2018-12-07 10:19 | PDOCDIS ---
Discharge Instructions CONDITION [id number] Patient Condition: [id number] Good HOME CARE INSTRUCTIONS: [id number] Diet Instructions: [id number] Regular ACTIVITY: [id number] Activity Restrictions: [id number] Avoid heavy lifting (x 4 weeks ) FOLLOW UP/APPOINTMENTS Follow-up Plan FOLLOW UP WITH YOUR PCP IN 1-2 WEEKS, FOLLOW UP WITH DR APPIAH OF SURGERY IN 2-3 WEEKS JOSE ELIAS WASHINGTON December 07, 2018 10:19
--- NOTE | 2018-12-07 14:32 | DS ---
Date/Time of Note Date/Time of Note DATE: 12/07/18 TIME: 14:31 Discharge Summary Admission/Discharge Info Admit Date/Time December 06, 2018 at 18:29 Discharge Date/Time December 07, 2018 at 12:41 Discharge Diagnosis 1. Abdominal pain and sepsis secondary to acute appendicitis Status post lap appendectomy Pain control Status post Zosyn IV Patient Condition: Good Hospital Course Patient is a 33-year-old male with no past medical history, patient presents with abdominal pain, in the ER CT abdomen showed acute appendicitis. Patient underwent a laparoscopic appendectomy and was clear for DC the following day per surgery. On day of discharge patient vitals, labs and physical exam are stable. Home Meds Active Scripts Electrolyte,Oral (Pedialyte) 1,000 Ml Solution, 100 ML PO Q6 PRN for VOMITTING, #1000 ML Prov:YUN ARVIZU PA-C 01/22/17 Meclizine Hcl* (Antivert*) 12.5 Mg Tab, 12.5 MG PO Q6H PRN for DIZZINESS, #20 TAB Prov:YUN ARVIZU PA-C 01/22/17 Ondansetron Hcl* (Zofran*) 4 Mg Tablet, 4 MG PO Q6H for NAUSEA AND/OR VOMITING, #30 TAB Prov:YUN ARVIZU PA-C 01/22/17 Hydrocodone/Acetaminophen ([place] 5-325 Tablet) 1 Each Tablet, 1 TAB PO Q6H PRN for PAIN, #5 TAB Prov:TASHATADORCAS BRAUN PA-C 06/06/16 Tamsulosin Hcl* (Flomax*) 0.4 Mg Cap.er.24h, 0.4 MG PO BID, #30 CAP Prov:DORCAS WALL PA-C 06/06/16 Ondansetron Hcl* (Zofran*) 4 Mg Tablet, 4 MG PO Q6H for NAUSEA AND/OR VOMITING, #30 TAB Prov:DORCAS AWLL PA-C 06/06/16 Follow-up Plan FOLLOW UP WITH YOUR PCP IN 1-2 WEEKS, FOLLOW UP WITH DR APPIAH OF SURGERY IN 2-3 WEEKS Primary Care Provider Care Physician No Primary Time spent on discharge: > 30 minutes JOSE ELIAS WASHINGTON December 07, 2018 14:32
== END 2018-12-07 12:41 | disposition home or self-care (01) | DRG 343 ==
LOC: FTE 14:32 → REC 18:29 → MS1 20:59
PROVIDERS: ADMIT Internal Medicine; ATTEND Internal Medicine
PROC: 0DTJ4ZZ Resection of Appendix, Percutaneous Endoscopic Approach (ICD-10-PCS; principal; 2018-12-06 19:00)
DX: K35.80 Unspecified acute appendicitis (principal)
CPT/HCPCS: 36415; 73630; 74176; 80048; 80053; 81001; 83036; 83690; 83735; 84100; 85025; 85610; 85730; 86850; 86900; 86901; 88304; 96374; 96375; J0690; J1100; J1650; J1885; J2250; J2270; J2405; J2543; J2710; J3010; J3480; J7030; J7040